=== PATIENT | female | born 1945 | race Two or more races ===

== ENCOUNTER 2022-09-19 15:45 | Emergency (ER) | payer MEDICARE ==
[~2022-09-19] VITALS: Ht 175.3 cm; Wt 82.1 kg
--- NOTE | 2022-09-19 16:22 | NUR ---
COVID SWAB OBTAINED AND SENT TO LAB
--- NOTE | 2022-09-19 16:28 | NUR ---
RAC 20G IV STARTED. BLOOD DRAWN AND SENT TO LAB. LINE FLUSHED, PT TOLERATED WELL
[2022-09-19 16:31] LABS: BASOPHILS % (AUTO) 0.5 % (0.0-2.0); EOSINOPHILS % (AUTO) 1.1 % (0.0-6.0); HEMATOCRIT 38 % (33-45); HEMOGLOBIN 12.6 g/dL (11.5-14.8); LYMPHOCYTES # (AUTO) 2.2 K/uL (0.8-4.8); LYMPHOCYTES % (AUTO) 28.4 % (20.0-44.0); MEAN CORPUSCULAR HGB CONC 33 g/dl (31.0-36.0); MEAN CORPUSCULAR VOLUME 95 fL (82-100); MONOCYTES # (AUTO) 0.7 K/uL (0.1-1.30); MONOCYTES % (AUTO) 9.1 % (2.0-12.0); NEUTROPHILS # (AUTO) 4.8 K/uL (1.8-8.9); NEUTROPHILS % (AUTO) 60.9 % (43.0-81.0); PLATELET COUNT (AUTO) 254 K/uL (150-450); WHITE BLOOD COUNT (AUTO) 7.9 K/uL (4.3-11.0)
[2022-09-19 16:38] LABS: CALCIUM, SERUM 9.7 mg/dL (8.5-10.1); CARBON DIOXIDE 25 mmol/L (21-32); CHLORIDE 108 mmol/L (98-107); CREATININE 0.9 mg/dL (0.6-1.3); GLUCOSE 138 mg/dL (74-106); POTASSIUM 3.5 mmol/L (3.5-5.1); SODIUM SERUM 145 mmol/L (136-145); UREA NITROGEN, BLOOD 18 mg/dL (7-18)
[2022-09-19 16:44] LABS: ALANINE AMINOTRANSFERASE 31 U/L (12-78); ALBUMIN 3.7 g/dL (3.4-5.0); ALKALINE PHOSPHATASE 69 U/L (46-116); ASPARTATE AMINOTRANSFERASE 16 U/L (15-37); BILIRUBIN,DIRECT 0.1 mg/dL (0.0-0.2); BILIRUBIN,TOTAL 0.2 mg/dL (0.2-1.0); TOTAL PROTEIN, SERUM 7.3 g/dL (6.4-8.2)
[2022-09-19] MEDS ORDERED: IV NS 0.9% 250 ML IV ONE (17:33)
[2022-09-19] MEDS ORDERED: IOHEXOL-350 100 ML VIAL IV ONE (17:33)
[2022-09-19 20:32] VITALS: BP 141/85
== END 2022-09-19 20:39 | disposition home or self-care (01) ==
LOC: ER 16:17
DX: R07.89 Other chest pain (principal); R06.02 Shortness of breath; I48.91 Unspecified atrial fibrillation; R91.1 Solitary pulmonary nodule; R00.0 Tachycardia, unspecified; Z20.822 Contact with and (suspected) exposure to COVID-19
CPT/HCPCS: 99285; 71275; 71045; 87426; 93005 ×3; 85025; 80048; 80076; 85378; 36415; 84484 ×2; J7050; Q9967; C9803